=== PATIENT | female | born 1990 | race Caucasian/White ===

== ENCOUNTER 2021-02-12 11:09 | Emergency (ER) | payer SELFPAY ==
--- NOTE | 2021-02-12 11:57 | EDM.PDOC ---
ED HPI GENERAL MEDICAL PROBLEM - General Chief Complaint: ENT Problem Stated Complaint: SORE THROAT Time Seen by Provider: 02/12/21 11:31 Source of Information: Reports: Patient, RN Notes Reviewed History Limitations: Reports: No Limitations - History of Present Illness INITIAL COMMENTS - FREE TEXT/NARRATIVE: Patient is a 30-year-old female presenting to the emergency department with complaints of sore throat for the last 5 days. Reports pain is worse on the left side. Complains of difficulty swallowing both due to the pain and swelling in her tonsils. She does have a history of strep tonsillitis. She was seen in the walk-in clinic on Sunday of this week and had a strep test done which came back negative. She reports since that time it initially got worse and has now stayed the same for the last 5 days. Reports that she has had a mild subjective fever but no nausea or vomiting. Denies any respiratory symptoms such as congestion or cough. She has had no abdominal pain. She has been using [id number] Tylenol and ibuprofen. This does give her limited relief. Left Throat Pain Score (Numeric/FACES): 8 - Related Data Allergies Allergy/AdvReac Type Severity Reaction Status Date / Time No Known Allergies Allergy Verified 02/12/21 11:22 Home Meds: Home Meds Amoxicillin 500 mg PO BID 10 Days #20 tab 02/12/21 [Rx] Sertraline [Zoloft] 100 mg PO DAILY 02/12/21 [History] cloNIDine [Catapres] 0.2 mg PO DAILY 02/12/21 [History] Social & Family History - Tobacco Use Tobacco Use Status *Q: Current Every Day Tobacco User Years of Tobacco use: 17 Packs/Tins Daily: 0.5 - Caffeine Use Caffeine Use: Reports: Coffee - Recreational Drug Use Recreational Drug Use: Yes Drug Use in Last 12 Months: Yes Recreational Drug Type: Reports: Heroin, Methamphetamine Recreational Drug Use Frequency: Not Used In Over 2 Months ED ROS ENT - Review of Systems Review Of Systems: Comprehensive ROS is negative, except as noted in HPI. ED EXAM, ENT - Physical Exam Exam: See Below Exam Limited By: No Limitations General Appearance: Alert, WD/WN, No Apparent Distress Mouth/Throat: Throat Pain, Tonsillar Erythema, Tonsillar Exudates, Tonsillar Swelling. No: Muffled Voice, Peritonsillar Mass, Tongue Swelling, Trismus, Uvular Deviation Neck: Lymphadenopathy (L), Lymphadenopathy (R) Respiratory/Chest: No Respiratory Distress, Lungs Clear, Normal Breath Sounds, No Accessory Muscle Use, Chest Non-Tender Cardiovascular: Normal Peripheral Pulses, Regular Rate, Rhythm, No Edema, No Gallop, No JVD, No Murmur, No Rub GI/Abdominal: Normal Bowel Sounds, Soft, Non-Tender, No Organomegaly, No Distention, No Abnormal Bruit, No Mass Neurological: Alert, Oriented, CN II-XII Intact, Normal Cognition, Normal Gait, Normal Reflexes, No Motor/Sensory Deficits Psychiatric: Normal Affect, Normal Mood Skin: Warm, Dry, Intact, Normal Color, No Rash Course - Vital Signs Last Recorded V/S: Last Vital Signs Temp 96.5 F L 02/12/21 11:45 Pulse 75 02/12/21 11:45 Resp 16 02/12/21 11:45 BP 136/94 H 02/12/21 11:45 Pulse Ox 99 02/12/21 11:45 - Re-Assessments/Exams Free Text/Narrative Re-Assessment/Exam: Patient is a 30-year-old female presenting to the emergency department with complaints of sore throat x5 days worse on the left than the right. She was tested for strep 5 days ago and found to be negative. She reports that after that it did worsen and has been consistently painful since that time. She is had a mild subjective fever but denies any nausea or vomiting. On exam, bilateral tonsils are red and beefy. There are a few scattered exudates on both tonsils, slightly more on the left than the right. Clinically she does have strep tonsillitis. We will treat with amoxicillin. Recommend continue Tylenol and ibuprofen for discomfort. Discussed return precautions. Discharge instructions as documented. Departure - Departure Time of Disposition: 11:56 Disposition: Home, Self-Care 01 Condition: Good Clinical Impression: Tonsillitis - Discharge Information *PRESCRIPTION DRUG MONITORING PROGRAM REVIEWED*: No *COPY OF PRESCRIPTION DRUG MONITORING REPORT IN PATIENT CALEB: No Prescriptions: Amoxicillin 500 mg PO BID 10 Days #20 tab Instructions: Tonsillitis, [id number] Referrals: PCP,Not In Area [Primary Care Provider] - Additional Instructions: You were seen in the emergency department today for a 5-day history of sore throat. Exam findings are consistent with strep tonsillitis. You have been started amoxicillin for treatment of this. Continue to use Tylenol and ibuprofen as needed for discomfort. Chloraseptic throat spray may also be beneficial until symptoms improve. You should see improvement over the next 3 to 4 days. If you should experience any worsening symptoms, please do not hesitate to return to the emergency department for reevaluation. Sepsis Event Note (ED) - Evaluation Sepsis Screening Result: No Definite Risk - Focused Exam Vital Signs: Vital Signs Temp Pulse Resp BP Pulse Ox 02/12/21 11:45 96.5 F L 75 16 136/94 H 99
== END 2021-02-12 12:15 | disposition home or self-care (01) ==
LOC: JD.ED 11:09
DX: J03.90 Acute tonsillitis, unspecified (principal); Z72.0 Tobacco use
CPT/HCPCS: 99283

== ENCOUNTER 2021-06-20 18:00 | Emergency (ER) | payer MEDICAID, OTHER ==
[2021-06-20] MEDS ORDERED: Fluorescein 1 MG Ophth Strip EYELF STA (18:58)
[2021-06-20] MEDS ORDERED: Proparacaine 0.5% Ophth Soln 15 ML Bottle EYELF STA (18:58)
[2021-06-20] MEDS ORDERED: Tobramycin 0.3% Ophth Drops 5 ML Bottle EYELF STA (19:07)
--- NOTE | 2021-06-20 19:17 | EDM.PDOC ---
ED HPI GENERAL MEDICAL PROBLEM - General Chief Complaint: Eye Problems Stated Complaint: L EYE RED/SWOLLEN Time Seen by Provider: 06/20/21 18:47 Source of Information: Reports: Patient, Significant Other (Boyfriend) History Limitations: Reports: No Limitations - History of Present Illness INITIAL COMMENTS - FREE TEXT/NARRATIVE: Mrs. Mooney is a very pleasant 31-year-old woman who now presents the ED with left eye redness, swelling, and discomfort, that she states developed 3 days ago, 06/17/2021. She states that she woke with it. She states that it developed after she felt some left nostril pressure for a day or so. No recent fever. No prior similar symptoms. The patient states that she has instilled some [id number] eyedrops (like Visine), and applied a warm compress over her left eye. At triage, the patient's initial BP was found to be modestly elevated at 150/75, otherwise, she was hemodynamically stable, afebrile, saturating 100% on room air. She does not appear to be in acute distress. Prior to Sunday, the patient denies having a recent fever, chills, sore throat, ear pain, nasal or sinus congestion, cough, dyspnea, chest pain, palpitations, nausea, vomiting, constipation, diarrhea, abdominal pain, urinary symptoms, recent weight gain or weight loss, recent bloody bowel movements or black bowel movements, recent joint aches, headaches, or rashes. The patient's PCP is Susan Zaman NP. Her Automobile Drivers is Dr. Dione Magaña. She has not received a COVID vaccination, nor an influenza vaccination this season. Left Eye Pain Score (Numeric/FACES): 7 - Related Data Allergies Allergy/AdvReac Type Severity Reaction Status Date / Time No Known Allergies Allergy Verified 06/20/21 18:41 Home Meds: Home Meds . [No Known Home Meds] 06/20/21 [History] Past Medical History Psychiatric History: Reports: Addiction (heroin, methamphetamine), Anxiety (untreated), Depression (untreated) - Infectious Disease History Infectious Disease History: Reports: Hepatitis C (untreated) - Past Surgical History Female Surgical History: Reports: Tubal Ligation Social & Family History - Tobacco Use Tobacco Use Status *Q: Current Every Day Tobacco User Tobacco Use Within Last Twelve Months: Vaping (Nicotine) Years of Tobacco use: 19 Packs/Tins Daily: 0.5 Packs/Tins Daily Comment: Down from 2 ppd Tobacco Use Comment: Started smoking 2001 - Caffeine Use Caffeine Use: Reports: Coffee - Alcohol Use Alcohol Use History: Yes Alcohol Use Frequency: Socially (occasionally to excess) - Recreational Drug Use Recreational Drug Use: Yes Drug Use in Last 12 Months: Yes Recreational Drug Type: Reports: Heroin (last injected Nov 2020), Marijuana/Hashish (smokes on occasion), Methamphetamine (last smoked, injected Nov 2020) - Living Situation & Occupation Living situation: Reports: (), with Significant Other (Boyfriend) Occupation: Unemployed ED ROS GENERAL - Review of Systems Review Of Systems: Comprehensive ROS is negative, except as noted in HPI. ED EXAM GENERAL W FULL EYE - Physical Exam Exam: See Below Exam Limited By: No Limitations General Appearance: Alert, WD/WN, No Apparent Distress Eyelids: Right: Normal Appearance, Left: Edema (mild), Erythema (mild), Lid Everted for Exam Conjunctiva & Sclera: Right: Normal Appearance, Left: Injected (significant) Cornea Exam: Left: Examined with Flourescein, Bilateral: Normal Appearance Extraocular Movements: Bilateral: Intact Pupils: Normal Accommodation Pupillary Size: Bilateral: 5 mm Pupillary Reaction: Bilateral: Brisk Anterior Chamber: Bilateral: Normal Appearance Ears: Normal External Exam, Normal Canal, Hearing Grossly Normal, Normal TMs Nose: Normal Inspection, Normal Mucosa (including the left), No Blood Throat/Mouth: Normal Inspection, Normal Lips, Normal Teeth, Normal Gums, Normal Oropharynx, Normal Voice, No Airway Compromise Head: Atraumatic, Normocephalic Neck: Normal Inspection, Supple, Non-Tender, Full Range of Motion. No: Lymphadenopathy (L), Lymphadenopathy (R) Course - Vital Signs Last Recorded V/S: Last Vital Signs Temp 36.9 C 06/20/21 18:36 Pulse 88 06/20/21 18:36 Resp 18 06/20/21 18:36 BP 150/75 H 06/20/21 18:36 Pulse Ox 100 06/20/21 18:36 - Orders/Labs/Meds Meds: Medications Discontinued Medications Generic Name Dose Route Start Last Admin Trade Name Freq PRN Reason Stop Dose Admin Ciprofloxacin 1 ml 06/20/21 19:36 06/20/21 19:54 Ciprofloxacin 0.3% Ophth Soln 5 Ml Bottle EYELF 06/20/21 19:37 2 drop ONETIME STA Administration Fluorescein Sodium 1 mg 06/20/21 18:58 06/20/21 20:09 Fluorescein 1 Mg Ophth Strip EYELF 06/20/21 18:59 1 mg ONETIME STA Administration Proparacaine HCl 1 ml 06/20/21 18:58 06/20/21 20:09 Proparacaine 0.5% Ophth Soln 15 Ml Bottle EYELF 06/20/21 18:59 1 drop ONETIME STA Administration Tobramycin 1 ml 06/20/21 19:07 06/20/21 20:04 Tobramycin 0.3% Ophth Drops 5 Ml Bottle EYELF 06/20/21 19:08 Not Given ONETIME STA - Re-Assessments/Exams Free Text/Narrative Re-Assessment/Exam: 06/20/21 19:12 I examined the patient's left eye with proparacaine and fluorescein under a Parker lamp, finding no sign of a corneal abrasion or foreign body. The completeness of the injection of her eye indicates bacterial conjunctivitis. Since the patient reports that she felt some pressure or stuffiness in her left nostril prior to the onset of her left eye symptoms, it is possible that she had a clogged left nasolacrimal duct, or that the nasolacrimal duct seeded bacteria into her left eye. I have ordered tobramycin ophthalmic solution. She is to instill 2 drops into her left eye every hour until there is obvious improvement, then she can switch to 2 drops every 4 hours until complete resolution. If she is not having obvious improvement within a few days, I would like her to follow-up with an eye doctor. 06/20/21 19:38 Notified that we do not actually carry tobramycin ophthalmic solution. I have therefore ordered ciprofloxacin ophthalmic solution. She is to instill 2 drops in her left eye every 2 hours while awake for 2 days, then 1 to 2 drops every 4 hours while awake for 5 days. As above, if she is not showing obvious improvement within a few days, she will need to follow-up with an eye doctor. Departure - Departure Time of Disposition: 19:13 Disposition: Home, Self-Care 01 Condition: Good Clinical Impression: Left conjunctivitis - Discharge Information *PRESCRIPTION DRUG MONITORING PROGRAM REVIEWED*: Not Applicable *COPY OF PRESCRIPTION DRUG MONITORING REPORT IN PATIENT CALEB: Not Applicable Referrals: Susan Zaman NP [Primary Care Provider] - Dione Magaña MD [Physician] - Forms: ED Department Discharge Additional Instructions: You were seen in the emergency room for approximately 3 days of left eye redness and localized swelling. Based on your history and physical examination, you are most likely suffering from bacterial conjunctivitis of your left eye. You have been started on the antibiotic eyedrop ciprofloxacin, and the bottle was given to you. Instill 2 drops of ciprofloxacin into your left eye every 2 hours (while awake) for 2 days, then switch to 2 drops every 4 hours for 5 additional days. If you are not having obvious improvement within a few days, please follow-up with an eye doctor. If any other problems, please do not hesitate to return to the ER. Sepsis Event Note (ED) - Evaluation Sepsis Screening Result: No Definite Risk - Focused Exam Vital Signs: Vital Signs Temp Pulse Resp BP Pulse Ox 06/20/21 18:36 36.9 C 88 18 150/75 H 100
[2021-06-20] MEDS ORDERED: Ciprofloxacin 0.3% Ophth Soln 5 ML Bottle EYELF STA (19:36)
== END 2021-06-20 20:03 | disposition home or self-care (01) ==
LOC: JD.ED 18:00
DX: H10.9 Unspecified conjunctivitis (principal); Z72.0 Tobacco use
CPT/HCPCS: 99282; 99283; A9270-GY

== ENCOUNTER 2023-05-17 13:18 | Emergency (ER) | payer SELFPAY ==
[2023-05-17] MEDS ORDERED: Albuterol/Ipratropium 3.0-0.5 MG/3 ML Neb Soln NEB ONE (14:02)
[2023-05-17 14:37] LABS: BASOPHILS PERCENT AUTO 0.2 % (0.0-1.0); EOSINOPHILS PERCENT AUTO 0.1 % (0.0-6.0); HEMATOCRIT 46.2 % (37.0-47.0); IMMATURE GRAN ABSOLUTE AUTO 0.02 K/mm3 (0.00-0.05); IMMATURE GRAN PERCENT AUTO 0.2 % (0.0-0.4); LYMPHOCYTES PERCENT AUTO 22.7 % (24.0-44.0); MEAN CORPUSCULAR HEMOGLOBIN 33.2 pg (28.0-32.0); MEAN CORPUSCULAR HGB CONC 34.6 g/dl (32.0-36.0); MEAN CORPUSCULAR VOLUME 95.9 fl (83.0-99.0); MEAN PLATELET VOLUME 9.6 fl (9.4-12.3); MONOCYTES ABSOLUTE AUTO 0.7 K/mm3 (0.0-0.8); NEUTROPHILS ABSOLUTE AUTO 6.2 K/mm3 (1.8-7.7); NEUTROPHILS PERCENT AUTO 68.8 % (41.0-71.0); PLATELET COUNT,PLT 205 K/mm3 (150-400); RED BLOOD CELL COUNT 4.82 M/mm3 (4.10-5.30)
[2023-05-17 14:59] LABS: A/G RATIO 0.8 (1-2); ALANINE AMINOTRANSFERASE,ALT 102 U/L (14-59); ALBUMIN 3.5 g/dl (3.4-5.0); ALKALINE PHOSPHATASE 93 U/L (46-116); ANION GAP 16.1 (5-15); ASPARTATE AMNIOTRANSFERASE,AST 168 U/L (15-37); BILIRUBIN TOTAL 0.7 mg/dL (0.2-1.0); BLOOD UREA NITROGEN,BUN 3 mg/dL (7-18); BUN/CREATININE RATIO 4.3 (14-18); C-REACTIVE PROTEIN <0.2 mg/dL (<1.0); CALCIUM 9.4 mg/dL (8.5-10.1); CARBON DIOXIDE,CO2 24 mEq/L (21-32); CHLORIDE,CL 102 mEq/L (98-107); CREATININE 0.7 mg/dL (0.55-1.02); EST CRCL DRUG DOSING (CG) 98.71 mL/min; ESTIMATED GFR 117 mL/min (>60); GLUCOSE RANDOM 100 mg/dL (70-99); POTASSIUM,K 3.1 mEq/L (3.5-5.1); PROTEIN TOTAL,TP 7.8 g/dl (6.4-8.2); SODIUM,NA 139 mEq/L (136-145)
[2023-05-17] MEDS ORDERED: Alum Hydrox/Mag Hydrox/Simeth 30 ML, Lidocaine 2% 15 ML PO ONE ×2 (15:29)
== END 2023-05-17 16:44 | disposition home or self-care (01) ==
LOC: JD.ED 13:18
DX: K29.70 Gastritis, unspecified, without bleeding (principal)
CPT/HCPCS: 36415; 71046; 80053; 85025; 86140; 94640; 99284; A9270; 99282; J7620-GY

== ENCOUNTER 2024-10-21 09:12 | Emergency (ER) | payer SELFPAY ==
[2024-10-21 10:29] LABS: BASOPHILS PERCENT AUTO 0.4 % (0.0-1.0); EOSINOPHILS PERCENT AUTO 0.1 % (0.0-6.0); HEMATOCRIT 42.7 % (37.0-47.0); IMMATURE GRAN ABSOLUTE AUTO 0.01 K/mm3 (0.00-0.05); IMMATURE GRAN PERCENT AUTO 0.1 % (0.0-0.4); LYMPHOCYTES ABSOLUTE AUTO 1.4 K/mm3 (1.0-4.8); LYMPHOCYTES PERCENT AUTO 19.9 % (24.0-44.0); MEAN CORPUSCULAR HEMOGLOBIN 33.6 pg (28.0-32.0); MEAN CORPUSCULAR HGB CONC 35.1 g/dl (32.0-36.0); MEAN CORPUSCULAR VOLUME 95.5 fl (83.0-99.0); MEAN PLATELET VOLUME 8.9 fl (9.4-12.3); MONOCYTES ABSOLUTE AUTO 0.7 K/mm3 (0.0-0.8); MONOCYTES PERCENT AUTO 10.1 % (0.0-8.0); NEUTROPHILS PERCENT AUTO 69.4 % (41.0-71.0); PLATELET COUNT,PLT 220 K/mm3 (150-400); RED BLOOD CELL COUNT 4.47 M/mm3 (4.10-5.30); WHITE BLOOD CELL COUNT,WBC 7.25 K/mm3 (3.9-11.3)
[2024-10-21 10:56] LABS: A/G RATIO 0.9 (1-2); ALANINE AMINOTRANSFERASE,ALT 197 U/L (14-59); ALBUMIN 3.5 g/dl (3.4-5.0); ALKALINE PHOSPHATASE 80 U/L (46-116); ANION GAP 14.7 (5-15); ASPARTATE AMNIOTRANSFERASE,AST 152 U/L (15-37); BILIRUBIN TOTAL 0.6 mg/dL (0.2-1.0); BLOOD UREA NITROGEN,BUN 7 mg/dL (7-18); BUN/CREATININE RATIO 8.8 (14-18); CALCIUM 9.6 mg/dL (8.5-10.1); CARBON DIOXIDE,CO2 27 mEq/L (21-32); CHLORIDE,CL 101 mEq/L (98-107); CREATININE 0.8 mg/dL (0.55-1.02); EST CRCL DRUG DOSING (CG) 85.56 mL/min; ESTIMATED GFR 99 mL/min (>60); GLUCOSE RANDOM 103 mg/dL (70-99); MAGNESIUM 1.6 mg/dL (1.8-2.4); POTASSIUM,K 4.7 mEq/L (3.5-5.1); PROTEIN TOTAL,TP 7.6 g/dl (6.4-8.2); SODIUM,NA 138 mEq/L (136-145)
[2024-10-21 11:00] LABS: TROPONIN I HIGH SENSITIVITY < 4 pg/mL (<=51)
[2024-10-21] MEDS: Sodium Chloride 0.9% 10 ML Syringe FLUSH ONE (11:35)
[2024-10-21] MEDS: Iopamidol 755 Mg/ML 100 ML Bottle IVPUSH ONE (11:35)
== END 2024-10-21 13:37 | disposition home or self-care (01) ==
LOC: JD.ED 09:12
DX: K21.9 Gastro-esophageal reflux disease without esophagitis (principal)
CPT/HCPCS: 36415; 71260; 80053; 83735; 84484; 85025; 85379; 93005; 99285; Q9967